=== PATIENT | female | born 1990 | race Caucasian/White ===

== ENCOUNTER 2020-07-12 15:25 | Emergency (ER) | payer OTHER ==
[~2020-07-12 15:25] MED LIST: ASPIR 8181 MG PO; LODINE CAP 300300 MG PO; ZOFRAN ODT 4 MG4 MG SL
== END 2020-07-12 19:50 | disposition home or self-care (01) ==
LOC: ER1 15:25
DX: J06.9 Acute upper respiratory infection, unspecified (principal); Z88.0 Allergy status to penicillin; Z88.6 Allergy status to analgesic agent; Z88.2 Allergy status to sulfonamides; Z88.8 Allergy status to other drugs, medicaments and biological substances; Z20.822 Contact with and (suspected) exposure to COVID-19
CPT/HCPCS: 99283; U0002

== ENCOUNTER → 2020-08-30 | Outpatient (CLI) | payer OTHER ==
[~2020-08-30] MED LIST changes: +NAPROSYN500 MG PO
== END ==
LOC: EXRD 10:33
DX: M54.5 Low back pain (principal); M25.552 Pain in left hip; M25.551 Pain in right hip
CPT/HCPCS: 72100; 73522

== ENCOUNTER 2020-10-24 20:10 | Emergency (ER) | payer OTHER ==
[~2020-10-24 20:10] MED LIST changes: -NAPROSYN500 MG PO
[2020-10-24] MEDS ORDERED: NAPROSYN500 MG PO (22:52)
== END 2020-10-24 23:18 | disposition home or self-care (01) ==
LOC: ER1 20:10
DX: S93.401A Sprain of unspecified ligament of right ankle, initial encounter (principal); E11.9 Type 2 diabetes mellitus without complications; I10 Essential (primary) hypertension; J45.909 Unspecified asthma, uncomplicated; M19.90 Unspecified osteoarthritis, unspecified site; W10.9XXA Fall (on) (from) unspecified stairs and steps, initial encounter; Y92.009 Unspecified place in unspecified non-institutional (private) residence as the place of occurrence of the external cause
CPT/HCPCS: 73610; 73630; 99283

== ENCOUNTER → 2021-02-23 | Outpatient (CLI) | payer OTHER ==
[~2021-02-23] MED LIST changes: +NAPROSYN500 MG PO
== END ==
LOC: EXRD 11:14
DX: L40.50 Arthropathic psoriasis, unspecified (principal); M46.1 Sacroiliitis, not elsewhere classified
CPT/HCPCS: 72202

== ENCOUNTER → 2021-05-11 | Outpatient (CLI) | payer OTHER | LOC: KOH-I 12:26 | DX: L40.50 Arthropathic psoriasis, unspecified (principal); M46.1 Sacroiliitis, not elsewhere classified | CPT/HCPCS: 72195 ==

== ENCOUNTER → 2021-11-18 | Outpatient (CLI) | payer OTHER | LOC: US 14:18 | DX: N63.0 Unspecified lump in unspecified breast (principal) | CPT/HCPCS: 76641-LT ==

== ENCOUNTER → 2022-01-04 | Outpatient (CLI) | payer OTHER ==
[2022-01-06 08:14] LABS: THYROXINE (T4) 9.6 ug/dL (4.5-12.0); TRIIODOTHYRONINE (T3) 152 ng/dL (71-180)
[2022-01-06 17:13] LABS: ENDOMYSIAL ANTIBODY IGA Negative (Negative); IMMUNOGLOBULIN A, QN, SERUM 407 mg/dL (87-352); T-TRANSGLUTAMINASE (TTG) IGA <2 U/mL (0-3)
== END ==
LOC: LAB 16:18
PROVIDERS: Internal Medicine Gastroenterology
DX: K59.09 Other constipation (principal); R14.3 Flatulence
CPT/HCPCS: 36415; 74018; 82784; 84436; 84443; 84480